=== PATIENT | female | born 1995 | race Caucasian/White ===

== ENCOUNTER 2018-11-08 16:24 | Emergency (ER) | payer MEDICAID, OTHER ==
[~2018-11-08] VITALS: Ht 167.6 cm; Wt 53.6 kg
[2018-11-08] MEDS ORDERED: METHOCARBAMOL 750 MG TABLET ONE (17:53)
[2018-11-08] MEDS ORDERED: METHOCARBAMOL 750 MG TABLET PO ONE (18:00)
--- NOTE | 2018-11-08 18:54 | NUR ---
Patient/Caregiver given discharge instructions and they have confirmed that they understand the instructions. Patient ambulatory with steady gait. Pt. was given her prescription. Pt. states relief from medications.
[2018-11-08 18:57] VITALS: BP 120/68
== END 2018-11-08 19:00 | disposition home or self-care (01) ==
LOC: ED 17:31
DX: S06.311A Contusion and laceration of right cerebrum with loss of consciousness of 30 minutes or less, initial encounter (principal); G89.11 Acute pain due to trauma; M54.2 Cervicalgia; R51 Headache; Y04.8XXA Assault by other bodily force, initial encounter; Y93.89 Activity, other specified; Y92.009 Unspecified place in unspecified non-institutional (private) residence as the place of occurrence of the external cause; Y99.8 Other external cause status
CPT/HCPCS: 70450; 72125; 99284